=== PATIENT | male | born 1960 | race Caucasian/White ===

== ENCOUNTER → 2020-11-27 11:07 | Outpatient (BNVA) | payer BC, SELFPAY | PROVIDERS: PCP Pediatrics; Visit Provider Specialist | DX: G20 Parkinson's disease (principal) | CPT/HCPCS: 99205 ==

== ENCOUNTER → 2021-02-13 11:43 | Outpatient (BNVA) | payer BC, SELFPAY | PROVIDERS: PCP Pediatrics; Visit Provider Specialist | DX: G20 Parkinson's disease (principal); G31.84 Mild cognitive impairment of uncertain or unknown etiology | CPT/HCPCS: 99214; 99215 ==

== ENCOUNTER → 2021-05-08 13:01 | Outpatient (BNVA) | payer BC, SELFPAY | PROVIDERS: PCP Pediatrics; Visit Provider Specialist | DX: G20 Parkinson's disease (principal) | CPT/HCPCS: 96116; 99214 ==